=== PATIENT | female | born 1940 | race Caucasian/White ===

== ENCOUNTER → 2017-03-14 | Outpatient (CLI) | payer OTHER ==
[~2017-03-14] MED LIST: ASPIRIN; AVANDIA; AVAPRO; GLUCOTROL; HCTZ PO; LIPITOR; METFORMIN PO; PROPRANOLOL; ZYRTEC
--- NOTE | ~2017-03-14 | MY29 ---
[facility] A Service of [facility] RADIOLOGY TEXT RESULTS PATIENT: MIKEY LOREDO LOCATION: [facility] : 38 UNIT #: [id number] AGE: [address]: Tello Kiran MD SEX: F ORDER DR: [id number] [facility] [address] [place], [place] [address] [id number] O MR#: [id number] #: [id number] NAME: MIKEY LOREDO : 1940 SEX: F STUDY DATE/TIME: 03/14/2017 11:58 UNIT: [facility] ROOM: STUDY DESCRIPTION: MY NILSON SCREENING W/ CAD BILAT Attending Physician: Tello Kiran M.D. Referring Physician: Tello Kiran M.D. Ordering Physician: Tello Kiran M.D. Primary Care Physician: Tello Kiran M.D. MEDICAL IMAGING REPORT This report is preliminary unless electronic signature is present EXAM Bilateral digital screening mammogram with CAD. INDICATIONS Breast cancer screening. 76-year-old asymptomatic female. No personal or family history of breast cancer. COMPARISON STUDIES January 05, 2015 and August 11, 2012. FINDINGS There are scattered fibroglandular tissues. No suspicious findings are present. IMPRESSION No mammographic evidence of malignancy. Annual screening mammography and clinical breast exam are recommended. Patients over the age of 40 are entered into a reminder system with target due date for the next mammogram. A result letter will also be sent to the patient. BIRADS: 1 Negative. Dictated by... Edgar Bartlett M.D. THIS IS AN ELECTRONICALLY VERIFIED REPORT Edgar Bartlett M.D. at 03/19/2017 6:11 PM LUIS ANTONIO/angela TD: 03/14/2017 17:17 [facility] A Service of [facility] RADIOLOGY TEXT RESULTS PATIENT: MIKEY LOREDO LOCATION: [facility] : 38 UNIT #: [id number] AGE: [address]: Tello Kiran MD SEX: F ORDER DR: JOB #: [id number] MEDICAL IMAGING REPORT Page 1 of 1 COPY
== END | disposition home or self-care (01) ==
LOC: CWCC 03-07 12:00
DX: Z12.31 Encounter for screening mammogram for malignant neoplasm of breast (principal)
CPT/HCPCS: G0202